=== PATIENT | female | born 1945 | race Asian ===

== ENCOUNTER 2018-10-08 14:17 | Emergency (ER) | payer MEDICARE ==
[~2018-10-08] VITALS: Ht 160 cm; Wt 60.0 kg
[2018-10-08] MEDS ORDERED: LISI2.5T47 PO (14:22)
[2018-10-08] MEDS ORDERED: ASPIRIN 325MG EC TABLET PO ONE (16:00)
[2018-10-08 16:03] LABS: CHLORIDE 105 mEq/L (98-107)
[2018-10-08 16:05] LABS: PARTIAL THROMBOPLASTIN TIME 26.8 sec (23.4-31.0); PROTHROMBIN TIME 10.2 sec (9.6-11.0)
[2018-10-08 16:07] LABS: BASOPHILS % 0.6 % (0.0-2.0); EOSINOPHILS % 1.1 % (0.0-5.0); HEMOGLOBIN. 13.2 g/dL (12.0-16.0); LYMPHOCYTES % 18.4 % (20.0-50.0); MEAN CORPUSCULAR VOLUME 90.5 fL (81.0-99.0); MEAN PLATELET VOLUME 7.9 fl (7.4-10.4); MONOCYTES % 7.2 % (2.0-8.0); NEUTROPHILS % 72.7 % (40.0-76.0); PLATELET 263 x1000/uL (130-400); RED BLOOD CELL COUNT 4.41 mill/uL (4.2-5.4); RED CELL DISTRIBUTION WIDTH 13.1 % (11.6-14.6)
[2018-10-08 16:10] LABS: LDL CHOLESTEROL 74 mg/dL (5-100)
[2018-10-08] MEDS ORDERED: IOHEXOL-350 100 ML BOTTLE ONE (18:12)
[2018-10-08] MEDS ORDERED: ASPIRIN 81MG TABLET PO ONE (20:45)
[2018-10-08 21:57] VITALS: BP 133/68
== END 2018-10-08 22:12 | disposition short-term general hospital (02) ==
LOC: ER 14:33 → CANBEDREQ 20:10 → ER 22:12
DX: G45.9 Transient cerebral ischemic attack, unspecified (principal); E78.00 Pure hypercholesterolemia, unspecified; I10 Essential (primary) hypertension; Z88.2 Allergy status to sulfonamides
CPT/HCPCS: 36415; 70450; 70496; 70498; 71045; 80053; 82962; 83721; 84484; 85025; 85610; 85730; 93005; 99285; Q9967

== ENCOUNTER 2018-11-16 20:27 | Emergency (ER) | payer MEDICARE ==
[~2018-11-16] VITALS: Ht 152.4 cm; Wt 54.0 kg
[~2018-11-16 20:27] MED LIST: LISI2.5T47 PO
[2018-11-16 23:22] VITALS: BP 141/80
== END 2018-11-16 23:24 | disposition home or self-care (01) ==
LOC: ER 22:10
DX: S09.90XA Unspecified injury of head, initial encounter (principal); S16.1XXA Strain of muscle, fascia and tendon at neck level, initial encounter; E78.00 Pure hypercholesterolemia, unspecified; I10 Essential (primary) hypertension; Z86.73 Personal history of transient ischemic attack (TIA), and cerebral infarction without residual deficits; W21.02XA Struck by soccer ball, initial encounter; Y93.89 Activity, other specified; Y92.89 Other specified places as the place of occurrence of the external cause
CPT/HCPCS: 99284

== ENCOUNTER → 2020-04-30 | Outpatient (CLI) | payer MEDICARE | END | disposition home or self-care (01) | LOC: MRI 12:25 | PROVIDERS: ATTEND Neurological Surgery | DX: S13.150A Subluxation of C4/C5 cervical vertebrae, initial encounter (principal); M50.221 Other cervical disc displacement at C4-C5 level; M48.02 Spinal stenosis, cervical region; M25.78 Osteophyte, vertebrae; X58.XXXA Exposure to other specified factors, initial encounter; Y93.89 Activity, other specified; Y92.89 Other specified places as the place of occurrence of the external cause; Y99.8 Other external cause status | CPT/HCPCS: 72141 ==

== ENCOUNTER → 2020-08-27 | Outpatient (CLI) | payer MEDICARE, MEDICAID ==
[~2020-08-27] MED LIST changes: +ALPR0.5T PO; +AMLO5TAB88 PO; +ASPI-986 MT; +CLON-457 PO; +CLOP-31 MT; +CRES10 PO; +LOSA50TA41 PO; +METO-396 MT; +OMEP20CA14 PO
== END | disposition home or self-care (01) ==
LOC: MRI 10:53
PROVIDERS: ATTEND Neurological Surgery
DX: M43.16 Spondylolisthesis, lumbar region (principal); M48.061 Spinal stenosis, lumbar region without neurogenic claudication
CPT/HCPCS: 72148

== ENCOUNTER 2020-11-05 21:45 | Inpatient (IN) | payer MEDICARE, OTHER ==
[~2020-11-05] VITALS: Ht 157.5 cm; Wt 53.5 kg
[2020-11-05 21:45] VITALS: BP 107/65
[2020-11-05] MEDS ORDERED: LACTULOSE 20G/30ML UDC PO PRN (23:00)
[2020-11-05] MEDS ORDERED: MAGNESIUM HYDROXIDE 400MG/5ML 30ML UDC PO PRN (23:00)
[2020-11-05] MEDS ORDERED: BISACODYL 10MG SUPP PR PRN (23:00)
[2020-11-05] MEDS: ALPRAZOLAM 0.5 MG TABLET PO PRN (23:59)
[2020-11-06 08:00] VITALS: BP 111/60
[2020-11-06] MEDS ORDERED: ENOXAPARIN 40MG/0.4ML SYR SUBCUT SCH (09:00)
[2020-11-06] MEDS: ENOXAPARIN 30MG/0.3ML SYR SUBCUT SCH (09:28)
[2020-11-06] MEDS: FAMOTIDINE 20MG/2ML VIAL IV SCH (09:29)
[2020-11-06] MEDS: CLOPIDOGREL 75MG TABLET PO SCH (09:29)
[2020-11-06] MEDS: ASPIRIN 81MG TABLET PO SCH (09:29)
[2020-11-06] MEDS: AMLODIPINE 2.5MG TABLET PO SCH (09:29)
[2020-11-06] MEDS: DOCUSATE SODIUM 100MG CAPSULE PO SCH ×2 (13:27→17:49)
[2020-11-06 20:00] VITALS: BP 122/67
[2020-11-06] MEDS: ATORVASTATIN CALCIUM 10MG TABLET PO SCH (20:09)
[2020-11-06] MEDS: ALPRAZOLAM 0.5 MG TABLET PO PRN (22:27)
[2020-11-07 08:00] VITALS: BP 109/63
[2020-11-07] MEDS: DOCUSATE SODIUM 100MG CAPSULE PO SCH ×2 (09:46→18:07)
[2020-11-07] MEDS: ASPIRIN 81MG TABLET PO SCH (09:46)
[2020-11-07] MEDS: AMLODIPINE 2.5MG TABLET PO SCH (09:46)
[2020-11-07] MEDS: CLOPIDOGREL 75MG TABLET PO SCH (09:47)
[2020-11-07] MEDS: FAMOTIDINE 20MG/2ML VIAL IV SCH (09:48)
[2020-11-07] MEDS: ENOXAPARIN 30MG/0.3ML SYR SUBCUT SCH (09:48)
[2020-11-07 20:00] VITALS: BP 124/65
[2020-11-07] MEDS: ATORVASTATIN CALCIUM 10MG TABLET PO SCH (20:52)
[2020-11-07] MEDS: ALPRAZOLAM 0.5 MG TABLET PO PRN (22:25)
[2020-11-08 08:00] VITALS: BP 105/56
[2020-11-08] MEDS: AMLODIPINE 2.5MG TABLET PO SCH (09:00)
[2020-11-08] MEDS: ASPIRIN 81MG TABLET PO SCH (09:35)
[2020-11-08] MEDS: CLOPIDOGREL 75MG TABLET PO SCH (09:37)
[2020-11-08] MEDS: FAMOTIDINE 20MG TABLET PO SCH (09:37)
[2020-11-08] MEDS: ENOXAPARIN 30MG/0.3ML SYR SUBCUT SCH (09:38)
[2020-11-08] MEDS: DOCUSATE SODIUM 100MG CAPSULE PO SCH ×2 (09:40→17:45)
[2020-11-08] MEDS: BLOOD SUGAR DIAGNOSTIC STRIP TEST SCH (17:51)
[2020-11-08 20:00] VITALS: BP 110/60
[2020-11-08] MEDS ORDERED: MIRTAZAPINE 15MG TABLET PO SCH (21:00)
[2020-11-08] MEDS: ATORVASTATIN CALCIUM 10MG TABLET PO SCH (22:00)
[2020-11-09] MEDS: BLOOD SUGAR DIAGNOSTIC STRIP TEST SCH ×3 (07:00→09:40)
[2020-11-09] MEDS ORDERED: ALPRAZOLAM 0.5 MG TABLET PO PRN (07:15)
[2020-11-09 08:06] VITALS: BP 110/63
[2020-11-09] MEDS: CLOPIDOGREL 75MG TABLET PO SCH (09:38)
[2020-11-09] MEDS: ASPIRIN 81MG TABLET PO SCH (09:38)
[2020-11-09] MEDS: AMLODIPINE 2.5MG TABLET PO SCH (09:38)
[2020-11-09] MEDS: FAMOTIDINE 20MG TABLET PO SCH (09:38)
[2020-11-09] MEDS: DOCUSATE SODIUM 100MG CAPSULE PO SCH (09:38)
[2020-11-09] MEDS: ENOXAPARIN 30MG/0.3ML SYR SUBCUT SCH (09:39)
[2020-11-09 20:00] VITALS: BP 107/58
[2020-11-09] MEDS: ATORVASTATIN CALCIUM 10MG TABLET PO SCH (21:03)
[2020-11-09] MEDS: MIRTAZAPINE 15MG TABLET PO SCH (22:09)
[2020-11-10 06:27] LABS: CHLORIDE 106 mEq/L (98-107)
[2020-11-10 06:47] LABS: BASOPHILS % 0.7 % (0.0-2.0); HEMATOCRIT. 38.8 % (36.0-48.0); HEMOGLOBIN. 12.6 g/dL (12.0-16.0); LYMPHOCYTES % 29.2 % (20.0-50.0); MEAN CORPUSCULAR HEMOGLOBIN 30.1 pg (28.0-32.0); MEAN PLATELET VOLUME 7.6 fl (7.4-10.4); MONOCYTES % 10.9 % (2.0-8.0); NEUTROPHILS % 54.2 % (40.0-76.0); PLATELET 291 x1000/uL (130-400); RED BLOOD CELL COUNT 4.18 mill/uL (4.2-5.4); RED CELL DISTRIBUTION WIDTH 12.9 % (11.6-14.6)
[2020-11-10 07:46] VITALS: BP 121/67
[2020-11-10] MEDS: DOCUSATE SODIUM 100MG CAPSULE PO SCH ×2 (08:15→18:49)
[2020-11-10] MEDS: CLOPIDOGREL 75MG TABLET PO SCH (08:15)
[2020-11-10] MEDS: ASPIRIN 81MG TABLET PO SCH (08:15)
[2020-11-10] MEDS: FAMOTIDINE 20MG TABLET PO SCH ×2 (08:15→21:44)
[2020-11-10] MEDS: ENOXAPARIN 30MG/0.3ML SYR SUBCUT SCH (08:16)
[2020-11-10] MEDS: AMLODIPINE 2.5MG TABLET PO SCH (08:16)
[2020-11-10] MEDS: BLOOD SUGAR DIAGNOSTIC STRIP TEST SCH (08:16)
[2020-11-10 20:00] VITALS: BP 129/71
[2020-11-10] MEDS: ATORVASTATIN CALCIUM 10MG TABLET PO SCH (21:44)
[2020-11-10] MEDS: MIRTAZAPINE 15MG TABLET PO SCH (21:44)
[2020-11-11 08:00] VITALS: BP 117/64
[2020-11-11] MEDS: ENOXAPARIN 30MG/0.3ML SYR SUBCUT SCH (08:18)
[2020-11-11] MEDS: DOCUSATE SODIUM 100MG CAPSULE PO SCH ×2 (08:18→17:28)
[2020-11-11] MEDS: FAMOTIDINE 20MG TABLET PO SCH ×2 (08:18→21:16)
[2020-11-11] MEDS: AMLODIPINE 2.5MG TABLET PO SCH (08:18)
[2020-11-11] MEDS: CLOPIDOGREL 75MG TABLET PO SCH (08:18)
[2020-11-11] MEDS: ASPIRIN 81MG TABLET PO SCH (08:18)
[2020-11-11] MEDS: BLOOD SUGAR DIAGNOSTIC STRIP TEST SCH (08:19)
[2020-11-11 20:00] VITALS: BP 119/63
[2020-11-11] MEDS: ATORVASTATIN CALCIUM 10MG TABLET PO SCH (21:16)
[2020-11-11] MEDS: MIRTAZAPINE 15MG TABLET PO SCH (21:16)
[2020-11-12] MEDS: BLOOD SUGAR DIAGNOSTIC STRIP TEST SCH (06:55)
[2020-11-12 08:00] VITALS: BP 133/62
[2020-11-12] MEDS: ENOXAPARIN 30MG/0.3ML SYR SUBCUT SCH (09:17)
[2020-11-12] MEDS: DOCUSATE SODIUM 100MG CAPSULE PO SCH ×2 (09:17→16:25)
[2020-11-12] MEDS: ASPIRIN 81MG TABLET PO SCH (09:17)
[2020-11-12] MEDS: FAMOTIDINE 20MG TABLET PO SCH ×2 (09:17→21:15)
[2020-11-12] MEDS: CLOPIDOGREL 75MG TABLET PO SCH (09:17)
[2020-11-12] MEDS: AMLODIPINE 2.5MG TABLET PO SCH (09:18)
[2020-11-12 20:00] VITALS: BP 128/73
[2020-11-12] MEDS: TRAZODONE HCL 50MG TABLET PO SCH (21:00)
[2020-11-12] MEDS: ATORVASTATIN CALCIUM 10MG TABLET PO SCH (21:15)
[2020-11-12] MEDS: ALPRAZOLAM 0.5 MG TABLET PO PRN (21:15)
[2020-11-13 08:19] VITALS: BP 118/67
[2020-11-13] MEDS: ASPIRIN 81MG TABLET PO SCH (08:27)
[2020-11-13] MEDS: DOCUSATE SODIUM 100MG CAPSULE PO SCH ×2 (08:27→16:29)
[2020-11-13] MEDS: AMLODIPINE 2.5MG TABLET PO SCH (08:27)
[2020-11-13] MEDS: FAMOTIDINE 20MG TABLET PO SCH (08:27)
[2020-11-13] MEDS: CLOPIDOGREL 75MG TABLET PO SCH (08:27)
[2020-11-13] MEDS: ENOXAPARIN 30MG/0.3ML SYR SUBCUT SCH (08:28)
[2020-11-13] MEDS: BLOOD SUGAR DIAGNOSTIC STRIP TEST SCH (08:28)
[2020-11-13 20:00] VITALS: BP 112/69
[2020-11-13] MEDS: TRAZODONE HCL 50MG TABLET PO SCH (21:00)
[2020-11-13] MEDS: ATORVASTATIN CALCIUM 10MG TABLET PO SCH (21:25)
[2020-11-13] MEDS: ALPRAZOLAM 0.5 MG TABLET PO PRN (21:27)
[2020-11-14 08:03] VITALS: BP 111/62
[2020-11-14] MEDS: FAMOTIDINE 20MG TABLET PO SCH (08:07)
[2020-11-14] MEDS: DOCUSATE SODIUM 100MG CAPSULE PO SCH ×2 (08:07→18:11)
[2020-11-14] MEDS: ENOXAPARIN 30MG/0.3ML SYR SUBCUT SCH (08:07)
[2020-11-14] MEDS: CLOPIDOGREL 75MG TABLET PO SCH (08:07)
[2020-11-14] MEDS: ASPIRIN 81MG TABLET PO SCH (08:07)
[2020-11-14] MEDS: AMLODIPINE 2.5MG TABLET PO SCH (08:07)
[2020-11-14] MEDS: BLOOD SUGAR DIAGNOSTIC STRIP TEST SCH (08:07)
[2020-11-14 10:23] LABS: BASOPHILS % 0.4 % (0.0-2.0); EOSINOPHILS % 2.6 % (0.0-5.0); HEMOGLOBIN. 12.6 g/dL (12.0-16.0); LYMPHOCYTES % 12.2 % (20.0-50.0); MEAN CORPUSCULAR HEMOGLOBIN 31.2 pg (28.0-32.0); MEAN CORPUSCULAR VOLUME 91.6 fL (81.0-99.0); MEAN PLATELET VOLUME 7.2 fl (7.4-10.4); MONOCYTES % 8.8 % (2.0-8.0); PLATELET 293 x1000/uL (130-400); RED BLOOD CELL COUNT 4.03 mill/uL (4.2-5.4); RED CELL DISTRIBUTION WIDTH 12.7 % (11.6-14.6)
[2020-11-14 11:06] LABS: CHLORIDE 104 mEq/L (98-107)
[2020-11-14 20:00] VITALS: BP 122/57
[2020-11-14] MEDS: TRAZODONE HCL 50MG TABLET PO SCH (21:13)
[2020-11-14] MEDS: ATORVASTATIN CALCIUM 10MG TABLET PO SCH (21:13)
[2020-11-15 08:08] VITALS: BP 106/56
[2020-11-15] MEDS: BLOOD SUGAR DIAGNOSTIC STRIP TEST SCH (09:00)
[2020-11-15] MEDS: AMLODIPINE 2.5MG TABLET PO SCH (09:00)
[2020-11-15] MEDS: ASPIRIN 81MG TABLET PO SCH (09:09)
[2020-11-15] MEDS: DOCUSATE SODIUM 100MG CAPSULE PO SCH (09:09)
[2020-11-15] MEDS: ENOXAPARIN 30MG/0.3ML SYR SUBCUT SCH (09:11)
[2020-11-15] MEDS: CLOPIDOGREL 75MG TABLET PO SCH (09:11)
[2020-11-15] MEDS: FAMOTIDINE 20MG TABLET PO SCH (09:11)
[2020-11-15 11:44] VITALS: BP 142/69
== END 2020-11-15 13:55 | disposition home or self-care (01) | DRG 65 ==
PROVIDERS: ADMIT Psychiatry & Neurology Neurology; ATTEND Internal Medicine Endocrinology, Diabetes & Metabolism
DX: I63.512 Cerebral infarction due to unspecified occlusion or stenosis of left middle cerebral artery (principal); I31.3 Pericardial effusion (noninflammatory); K21.9 Gastro-esophageal reflux disease without esophagitis; K59.00 Constipation, unspecified; M47.812 Spondylosis without myelopathy or radiculopathy, cervical region; M48.00 Spinal stenosis, site unspecified; Z82.49 Family history of ischemic heart disease and other diseases of the circulatory system; Z86.73 Personal history of transient ischemic attack (TIA), and cerebral infarction without residual deficits; Z83.3 Family history of diabetes mellitus; Z86.16 Personal history of COVID-19; Z80.42 Family history of malignant neoplasm of prostate; E11.9 Type 2 diabetes mellitus without complications; E78.00 Pure hypercholesterolemia, unspecified; E78.5 Hyperlipidemia, unspecified; I10 Essential (primary) hypertension; I25.10 Atherosclerotic heart disease of native coronary artery without angina pectoris; Z51.5 Encounter for palliative care
CPT/HCPCS: 36415; 80048; 82962; 85025; 92523; 92610; 93970; 97110; 97112; 97116; 97162; 97166; 97530; 97535; A6261; J1650; J3490

== ENCOUNTER 2023-02-12 23:21 | Emergency (ER) | payer MEDICARE, OTHER ==
[~2023-02-12] VITALS: Ht 152.4 cm; Wt 50.2 kg
[2023-02-12 23:56] VITALS: TEMP 98.2; O2SAT 99
[2023-02-13] MEDS ORDERED: AMOX1TAB16 MT (00:28)
[2023-02-13] MEDS ORDERED: TETANUS, DIPHTHERIA, PERTUSSIS VAC/PF 0.5ML (>10YR OLD) IM ONE (00:30)
[2023-02-13 01:15] VITALS: BP 118/70; PULSE 58; RESP 13
== END 2023-02-13 01:17 | disposition home or self-care (01) ==
LOC: ER 23:50
DX: S61.051A Open bite of right thumb without damage to nail, initial encounter (principal); E78.00 Pure hypercholesterolemia, unspecified; I10 Essential (primary) hypertension; Z86.73 Personal history of transient ischemic attack (TIA), and cerebral infarction without residual deficits; Z79.899 Other long term (current) drug therapy; W54.0XXA Bitten by dog, initial encounter; Y93.89 Activity, other specified; Y92.89 Other specified places as the place of occurrence of the external cause; Y99.8 Other external cause status
CPT/HCPCS: 90471; 90715; 99283